=== PATIENT | male | born 1990 | race African-American/Black ===

== ENCOUNTER 2022-03-11 04:44 | Emergency (ER) | payer SELFPAY ==
[~2022-03-11] VITALS: Ht 180.3 cm; Wt 77.0 kg
[2022-03-11 04:51] VITALS: BP 125/83
[2022-03-11] MEDS ORDERED: LIDOCAINE HCL/PF 1% 10 MG/ML 5ML VIAL INFIL ONE (05:45)
[2022-03-11] MEDS ORDERED: BACITRACIN ZINC OINT UDPKT TOP ONE (05:45)
[2022-03-11] MEDS ORDERED: TETRACAINE/BENZOCAINE/BUTAMBEN 20 GM SPRAY MM NR (06:00)
[2022-03-11] MEDS ORDERED: AMOX1TAB16 MT (06:26)
[2022-03-11] MEDS ORDERED: IBUP-2077 MT (06:26)
[2022-03-11] MEDS ORDERED: DEXAMETHASONE 10 MG/ML VIAL IM ONE (06:30)
== END 2022-03-11 07:04 | disposition home or self-care (01) ==
LOC: ER 04:44
DX: J36 Peritonsillar abscess (principal); H66.92 Otitis media, unspecified, left ear; J45.909 Unspecified asthma, uncomplicated
CPT/HCPCS: 10060; 96372; 99283; J1100; J3490; Z7610